=== PATIENT | male | born 1955 | race Caucasian/White ===

== ENCOUNTER 2016-10-22 09:24 | Emergency (ER) | payer MEDICAID ==
--- NOTE | 2016-10-22 09:57 | EDM.PDOC ---
ED HPI GI/ABDOMINAL - General Stated Complaint: POST LIVER BIOP, EXTREME SIDE PAIN Time Seen by Provider: 10/22/16 09:45 Source of Information: Reports: Patient History Limitations: Reports: No limitations - History of Present Illness INITIAL COMMENTS - FREE TEXT/NARRATIVE: This 61 yo male patient reports to the ED with right upper quadrant pain that started 4 days ago and has been getting worse. The patient reports that he had a liver biopsy last by Dr. Rodriguez at [facility] in [place]. The patient reports his pain started to get bad on Friday and has been getting worse since that time. The patient reports that he called [facility] and they are supposed to be calling him back. The patient reports he has been taking the Tramadol as prescribed, but continues to have pain. The patient currently rates his pain at a 15/10. The patient was seen 1 month ago in the ED for similar symptoms. Symptom Onset Date: 10/19/16 Timing/Duration: Reports: Constant, Getting worse Location: RUQ Quality: Reports: ache, stabbing Severity: severe Improves with: Reports: sitting up Worsens with: Reports: lying down Context: Reports: recent surgery (liver biopsy) Associated Symptoms: Reports: denies other symptoms - Related Data Allergies/ADRs: Allergies Allergy/AdvReac Type Severity Reaction Status Date / Time Penicillins Allergy Severe hives, Verified 10/22/16 10:05 body swelling and fainting levofloxacin [From Levaquin] Allergy Intermediate arm Verified 10/22/16 10:05 swelling and extreme redness Iv Levaquin tetanus immune globulin Allergy Hives Verified 10/22/16 10:05 venom-honey bee Allergy Anaphylactic Verified 10/22/16 10:05 [bee venom (honey bee)] Shock Home Meds: Home Meds Albuterol Sulfate [Albuterol Sulfate HFA] 8.5 gm IH Q6H PRN #1 [id number].[id number] [Rx] Fluticasone Propionate [Flovent HFA 44 mcg] 2 puff INH ASDIRECTED 04/17/15 [ History] Amitriptyline [Elavil] 100 mg PO BEDTIME 05/27/16 [History] Ibuprofen [Advil] 200 mg PO DAILY 05/27/16 [History] Nitroglycerin [IJP: Nitroglycerin] 0.4 mg SL ASDIRECTED PRN 05/27/16 [History] OXcarbazepine [Oxcarbazepine] 75 mg PO BID 05/27/16 [History] Pantoprazole [Protonix] 40 mg PO BEDTIME 05/27/16 [History] Zolpidem Tartrate [Zolpidem Tartrate] 5 mg PO BEDTIME 05/27/16 [History] Albuterol/Ipratropium [DuoNeb 3.0-0.5 MG/3 ML] 1 puff INH ASDIRECTED 06/25/16 [ History] DULoxetine [Cymbalta] 1 tab PO BEDTIME 06/25/16 [History] Past Medical History - Past Health History Medical/Surgical History: Denies Medical/Surgical History HEENT History: Reports: None Cardiovascular History: Reports: None Respiratory History: Reports: COPD, Other (see below) Other Respiratory History: pulmoary hypertension Gastrointestinal History: Reports: GERD, Hepatitis, Other (see below) Other Gastrointestinal History: NAUSEA AND VOMITING; HEP C POSITIVE; HX OF HEP A ; HX OF R INGUINAL HERNIA Genitourinary History: Reports: None Musculoskeletal History: Reports: Arthritis, Neck pain, chronic Neurological History: Reports: Head trauma, Migraines Psychiatric History: Reports: Mood swings, Panic attack Endocrine/Metabolic History: Reports: None Hematologic History: Reports: None Immunologic History: Reports: None Oncologic (Cancer) History: Reports: None Dermatologic History: Reports: None - Infectious Disease History Infectious Disease History: Reports: Hepatitis A, Hepatitis C, Measles - Past Surgical History Head Surgeries/Procedures: Reports: None HEENT Surgical History: Reports: Tonsillectomy Cardiovascular Surgical History: Reports: None Respiratory Surgical History: Reports: None GI Surgical History: Reports: EGD, Hernia, inguinal Neurological Surgical History: Reports: None Musculoskeletal Surgical History: Reports: None Oncologic Surgical History: Reports: None Social & Family History - Family History Family Medical History: Noncontributory HEENT: Reports: None Cardiac: Reports: None Respiratory: Reports: None GI: Reports: None : Reports: Other (see below) Other Family History: kidney damage OBGYN: Reports: None Musculoskeletal: Reports: None Neurological: Reports: Migraines Psychiatric: Reports: None Endocrine/Metabolic: Reports: None Hematologic: Reports: None Immunologic: Reports: None Dermatologic: Reports: None Oncologic: Reports: None - Tobacco Use Smoking Status *Q: Current Every Day Smoker Years of Tobacco use: 48 Packs/Tins Daily: 0.2 Used Tobacco, but Quit: No Month Tobacco Last Used: 03/04/2015 Second Hand Smoke Exposure: No - Caffeine Use Caffeine Use: Reports: Coffee Caffeine Use Comment: 2 to 3 cups per day - Alcohol Use Days Per Week of Alcohol Use: 0 Number of Drinks Per Day: 2 Total Drinks Per Week: 0 - Recreational Drug Use Recreational Drug Use: Yes Drug Use in Last 12 Months: Yes Recreational Drug Type: Reports: Marijuana/Hashish Recreational Drug Use Frequency: Weekly Recreational Drug Last Use: 03/15/2015 - Living Situation & Occupation Living situation: Reports: , with family Occupation: employed ED ROS GENERAL - Review of Systems Review Of Systems: ROS reveals no pertinent complaints other than HPI. ED EXAM, GI/ABD - Physical Exam Exam: See Below Exam Limited By: No limitations General Appearance: alert, WD/WN, severe distress, thin Eyes: bilateral: normal appearance, EOMI Ears: normal external exam, normal canal, hearing grossly normal, normal TMs Nose: normal inspection, normal mucosa, no blood Throat/Mouth: Normal inspection, Normal lips, Normal teeth, Normal gums, Normal oropharynx, Normal voice, No airway compromise Head: atraumatic, normocephalic Neck: normal inspection, supple, non-tender, full range of motion Respiratory/Chest: no respiratory distress, lungs clear, normal breath sounds, no accessory muscle use, chest non-tender Cardiovascular: normal peripheral pulses, regular rate, rhythm, no edema, no gallop, no JVD, no murmur, no rub GI/Abdominal: normal bowel sounds, tenderness (RUQ), guarding, rigidity (Male) Exam: Deferred Rectal (Males) Exam: Deferred Back Exam: normal inspection, full range of motion, NT Extremities: normal inspection, normal range of motion, non-tender, normal capillary refill, no pedal edema Neurological: alert, oriented, CN II-XII intact, normal cognition, normal gait, normal reflexes, no motor/sensory deficits Psychiatric: normal affect, normal mood Skin Exam: Warm, Dry, Intact, Normal color, No rash Lymphatic: no adenopathy Course - Vital Signs Last Recorded V/S: Last Vital Signs Temp 36.4 C 10/22/16 09:58 Pulse 88 10/22/16 09:58 Resp 16 10/22/16 09:58 BP 142/88 H 10/22/16 09:58 Pulse Ox 97 10/22/16 09:58 - Orders/Labs/Meds Orders: Active Orders 24 hr Category Date Time Status Abdomen Pelvis w wo Cont [CT] Urgent Exams 10/22/16 10:50 Taken Sodium Chloride 0.9% [Normal Saline] 1,000 ml Med 10/22/16 10:21 Active IV .BOLUS Medication Orders Sodium Chloride (Normal Saline) 1,000 mls @ 125 mls/hr IV .BOLUS ONE Stop: 10/22/16 18:20 Last Admin: 10/22/16 10:29 Dose: 125 mls/hr Labs: Laboratory Tests 10/22/16 10/22/16 10/22/16 Range/Units 09:50 09:50 10:00 WBC 7.4 (5.0-10.0) 10^3/uL RBC 5.03 (4.6-6.2) 10^6/uL Hgb 16.4 (14.0-18.0) g/dL Hct 47.1 (40.0-54.0) % MCV 93.6 (80-100) fL MCH 32.6 (27.0-34.0) pg MCHC 34.8 (33.0-35.0) g/dL Plt Count 156 (150-450) 10^3/uL Neut % (Auto) 61.9 (42.2-75.2) % Lymph % (Auto) 25.4 (20.5-50.1) % [place] % (Auto) 9.8 H (2-8) % Eos % (Auto) 2.6 (1.0-3.0) % Baso % (Auto) 0.3 (0.0-1.0) % Sodium 137 (135-145) mmol/L Potassium 4.1 (3.6-5.0) mmol/L Chloride 101 (101-111) mmol/L Carbon Dioxide 28.0 (21.0-31.0) mmol/L Anion Gap 12.1 BUN 10 (7-18) mg/dL Creatinine 0.9 (0.6-1.3) mg/dL Est Cr Clr Drug Dosing 73.71 mL/min Estimated GFR (MDRD) > 60 BUN/Creatinine Ratio 11.11 Glucose 120 H (74-105) mg/dL Calcium 9.1 (8.4-10.2) mg/dl Magnesium 1.9 (1.8-2.5) mg/dL Total Bilirubin 0.9 (0.2-1.0) mg/dL AST 29 (10-42) IU/L ALT 29 (10-60) IU/L Alkaline Phosphatase 57 (42-121) IU/L Total Protein 7.2 (6.7-8.2) g/dl Albumin 4.2 (3.2-5.5) g/dl Globulin 3.0 Albumin/Globulin Ratio 1.40 Amylase 76 (28-100) U/L Urine Color (YELLOW) Urine Appearance (CLEAR) Urine pH (5.0-9.0) Ur Specific [place] (1.005-1.030) Urine Protein (NEGATIVE) Urine Glucose (UA) (NEGATIVE) Urine Ketones (NEGATIVE) Urine Occult Blood (NEGATIVE) Urine Nitrite (NEGATIVE) Urine Bilirubin (NEGATIVE) Urine Urobilinogen (0.2-1.0) mg/dL Ur Leukocyte Esterase (NEGATIVE) Urine RBC /HPF Urine WBC (0-5/HPF) /HPF Ur Epithelial Cells /HPF Amorphous Sediment (0/HPF) /HPF Urine Bacteria (0-FEW/HPF) /HPF Urine Opiates Screen Negative (NEGATIVE) Ur Oxycodone Screen Negative (NEGATIVE) Urine Methadone Screen Negative (NEGATIVE) Ur Barbiturates Screen Negative (NEGATIVE) U Tricyclic Antidepress Positive H (NEGATIVE) Ur Phencyclidine Scrn Negative (NEGATIVE) Ur Amphetamine Screen Negative (NEGATIVE) U Methamphetamines Scrn Negative (NEGATIVE) Urine MDMA Screen Negative (NEGATIVE) U Benzodiazepines Scrn Negative (NEGATIVE) Urine Cocaine Screen Negative (NEGATIVE) U Marijuana (THC) Screen Positive H (NEGATIVE) 10/22/16 Range/Units 10:00 WBC (5.0-10.0) 10^3/uL RBC (4.6-6.2) 10^6/uL Hgb (14.0-18.0) g/dL Hct (40.0-54.0) % MCV (80-100) fL MCH (27.0-34.0) pg MCHC (33.0-35.0) g/dL Plt Count (150-450) 10^3/uL Neut % (Auto) (42.2-75.2) % Lymph % (Auto) (20.5-50.1) % [place] % (Auto) (2-8) % Eos % (Auto) (1.0-3.0) % Baso % (Auto) (0.0-1.0) % Sodium (135-145) mmol/L Potassium (3.6-5.0) mmol/L Chloride (101-111) mmol/L Carbon Dioxide (21.0-31.0) mmol/L Anion Gap BUN (7-18) mg/dL Creatinine (0.6-1.3) mg/dL Est Cr Clr Drug Dosing mL/min Estimated GFR (MDRD) BUN/Creatinine Ratio Glucose (74-105) mg/dL Calcium (8.4-10.2) mg/dl Magnesium (1.8-2.5) mg/dL Total Bilirubin (0.2-1.0) mg/dL AST (10-42) IU/L ALT (10-60) IU/L Alkaline Phosphatase (42-121) IU/L Total Protein (6.7-8.2) g/dl Albumin (3.2-5.5) g/dl Globulin Albumin/Globulin Ratio Amylase (28-100) U/L Urine Color Yellow (YELLOW) Urine Appearance Slightly cloudy (CLEAR) Urine pH 6.0 (5.0-9.0) Ur Specific [place] 1.010 (1.005-1.030) Urine Protein Negative (NEGATIVE) Urine Glucose (UA) Negative (NEGATIVE) Urine Ketones Negative (NEGATIVE) Urine Occult Blood Negative (NEGATIVE) Urine Nitrite Negative (NEGATIVE) Urine Bilirubin Negative (NEGATIVE) Urine Urobilinogen 0.2 (0.2-1.0) mg/dL Ur Leukocyte Esterase Negative (NEGATIVE) Urine RBC Not seen /HPF Urine WBC Not seen (0-5/HPF) /HPF Ur Epithelial Cells Rare /HPF Amorphous Sediment Few (0/HPF) /HPF Urine Bacteria Rare (0-FEW/HPF) /HPF Urine Opiates Screen (NEGATIVE) Ur Oxycodone Screen (NEGATIVE) Urine Methadone Screen (NEGATIVE) Ur Barbiturates Screen (NEGATIVE) U Tricyclic Antidepress (NEGATIVE) Ur Phencyclidine Scrn (NEGATIVE) Ur Amphetamine Screen (NEGATIVE) U Methamphetamines Scrn (NEGATIVE) Urine MDMA Screen (NEGATIVE) U Benzodiazepines Scrn (NEGATIVE) Urine Cocaine Screen (NEGATIVE) U Marijuana (THC) Screen (NEGATIVE) Meds: Medications Generic Name Dose Route Start Last Admin Trade Name Jessica PRN Reason Stop Dose Admin Sodium Chloride 1,000 mls @ 125 mls/hr 10/22/16 10:21 10/22/16 10:29 Normal Saline IV 10/22/16 18:20 125 mls/hr .BOLUS ONE Administration Discontinued Medications Generic Name Dose Route Start Last Admin Trade Name Jessica PRN Reason Stop Dose Admin Hydromorphone HCl 1 mg 10/22/16 10:22 10/22/16 10:29 Dilaudid IVPUSH 10/22/16 10:23 1 mg ONETIME ONE Administration Iopamidol 75 ml 10/22/16 10:50 10/22/16 11:29 Isovue-300 (61%) IVPUSH 10/22/16 10:51 75 ml ONETIME ONE Administration Departure - Departure Time of Disposition: 12:06 Disposition: Home, Self-Care 01 Condition: fair Clinical Impression: Hematoma of liver, closed Instructions: Hematoma, [id number] Care Plan Goals: The patient was advised of the examination, lab and CT results during the visit. The patient was given an IV dose of Dilaudid while in the ED. The patient was discharged with a script for [place] (5/325) #16 to take 1-2 by mouth every 8 hours as needed for pain. If the patient has any additional symptoms or concerns, the patient should follow-up with his primary care facility or return to the emergency department. - My Orders Last 24 Hours: My Active Orders 10/22/16 10:21 Sodium Chloride 0.9% [Normal Saline] 1,000 ml IV .BOLUS 10/22/16 10:50 Abdomen Pelvis w wo Cont [CT] Urgent - Assessment/Plan Last 24 Hours: My Active Orders 10/22/16 10:21 Sodium Chloride 0.9% [Normal Saline] 1,000 ml IV .BOLUS 10/22/16 10:50 Abdomen Pelvis w wo Cont [CT] Urgent
[2016-10-22 10:19] LABS: CHLORIDE,CL 101 mmol/L (101-111); SODIUM,NA 137 mmol/L (135-145)
[2016-10-22] MEDS ORDERED: Sodium Chloride 0.9% 1,000 ML IV ONE (10:21)
[2016-10-22] MEDS ORDERED: HYDROmorphone 1 MG/ML Syringe IVPUSH ONE (10:22)
[2016-10-22] MEDS ORDERED: Iopamidol 612 MG/ML 75 ML Bottle IVPUSH ONE (10:50)
[2016-10-22 12:24] VITALS: BP 152/68
--- NOTE | 2016-10-22 14:19 | CT ---
CLINICAL HISTORY: 61-year-old 135 pound male smoker with "severe" right upper abdominal pain (liver biopsy [address] exam 27 September 2016 reported as "unremarkable liver". SCAN TECHNIQUE: Triphase liver and CT exam upper abdomen obtained without oral contrast but before/d uring/after the intravenous administration 75 cc nonionic Isovue contrast (3 cc/sec via injector) wh ile the patient was lying supine on the Siemens multislice CT scanner [place], [place]. All data archived in the PACS system for storage, this enhancing and study. INTERPRETATION: 1. Nephrolithiasis left kidney (scattered punctate calcifications midline and lower pole). No associ ated evidence of obstructive uropathy. 2. Focal low density region with a "track" laterally located mid-level right lobe of the liver. No h ematoma or other mass lesion associated with this apparent biopsy site. Trace intercostal, extrahepa tic collection of air at origin of biopsy "tract". Nonspecific bowel pattern. Normal stomach, spleen, pancreas and adrenal glands. Small H.H. Normal gallbladder. 4. No upper abdominal mass lesion, bowel obstruction, signs of ascites or free intraperitoneal air. 5. Atheromatous calcifications but normal caliber aortoiliac vessels. Lung bases clear. CONCLUSION: Subtle, expected sequelae post biopsy procedure, RUQ. No sign of subcapsular hematoma or intraperitoneal bleed.
== END 2016-10-22 12:24 | disposition home or self-care (01) ==
LOC: DL.ED 09:24
DX: K76.89 Other specified diseases of liver (principal); J44.9 Chronic obstructive pulmonary disease, unspecified; I27.2 Other secondary pulmonary hypertension; K21.9 Gastro-esophageal reflux disease without esophagitis; F17.200 Nicotine dependence, unspecified, uncomplicated; Z88.0 Allergy status to penicillin; Z88.8 Allergy status to other drugs, medicaments and biological substances; Z79.899 Other long term (current) drug therapy
CPT/HCPCS: 36415; 74178; 80053; 80305; 81001; 82150; 83735; 85025; 96361; 96374; 99285; J1170; J7030; Q9967

== ENCOUNTER 2016-10-25 14:05 | Emergency (ER) | payer MEDICAID | END 2016-10-25 16:55 | disposition left against medical advice (07) | LOC: DL.ED 14:05 | DX: Z53.21 Procedure and treatment not carried out due to patient leaving prior to being seen by health care provider (principal) ==

== ENCOUNTER 2018-02-22 10:39 | Emergency (ER) | payer MEDICAID ==
[2018-02-22 10:57] VITALS: BP 137/95
[2018-02-22] MEDS ORDERED: Sodium Chloride 0.9% 10 ML Syringe FLUSH PRN (11:11)
--- NOTE | 2018-02-22 11:29 | EDM.PDOC ---
ED HPI GENERAL MEDICAL PROBLEM - General Chief Complaint: Chest Pain Stated Complaint: [id number] CHEST/STOMACH PAIN Time Seen by Provider: 02/22/18 11:18 Source of Information: Reports: Patient History Limitations: Reports: No Limitations - History of Present Illness INITIAL COMMENTS - FREE TEXT/NARRATIVE: Patient comes emergency Department today with complaints of epigastric pain. His epigastric pain is been going on from anywhere from 1 week to a month. He comes emergency department today because he can't take it anymore. It is a sharp shooting stabbing pain in his epigastric region that is worse when he stands up. He denies any heartburn type symptoms. He denies any chest pain or worsening of his shortness of breath due to his underlying COPD. No congestion no hemoptysis. He has tried nothing for the pain. He does not relate anything that makes the pain worse or better. Does not get worse with eating it does not get better with eating. Pain waxes and wanes throughout the day. He has had no nausea no vomiting. No hematuria dysuria or urinary frequency. No black or tarry stools. Mid-Sternal Chest Pain Score (Numeric/FACES): 6 - Related Data Allergies Allergy/AdvReac Type Severity Reaction Status Date / Time Penicillins Allergy Severe hives, Verified 10/22/16 10:05 body swelling and fainting levofloxacin [From Levaquin] Allergy Intermediate arm Verified 10/22/16 10:05 swelling and extreme redness Iv Levaquin tetanus immune globulin Allergy Hives Verified 10/22/16 10:05 venom-honey bee Allergy Anaphylactic Verified 10/22/16 10:05 [bee venom (honey bee)] Shock Home Meds: Home Meds Albuterol Sulfate [Albuterol Sulfate HFA] 8.5 gm IH Q6H PRN #1 [id number] [Rx] Fluticasone Propionate [Flovent HFA 44 mcg] 2 puff INH ASDIRECTED 04/17/15 [ History] Amitriptyline [Elavil] 100 mg PO BEDTIME 05/27/16 [History] Ibuprofen [Advil] 200 mg PO DAILY 05/27/16 [History] Nitroglycerin [IJP: Nitroglycerin] 0.4 mg SL ASDIRECTED PRN 05/27/16 [History] OXcarbazepine [Oxcarbazepine] 75 mg PO BID 05/27/16 [History] Zolpidem Tartrate 5 mg PO BEDTIME 05/27/16 [History] Albuterol/Ipratropium [DuoNeb 3.0-0.5 MG/3 ML] 1 puff INH ASDIRECTED 06/25/16 [ History] DULoxetine [Cymbalta] 1 tab PO BEDTIME 06/25/16 [History] Hydrocodone/Acetaminophen [Hydrocodon-Acetaminophen 5-325] 1 tab PO PRN [History] Zolpidem Tartrate 10/25/16 [History] traMADol HCl [Tramadol HCl] 10/25/16 [History] Past Medical History - Past Health History Medical/Surgical History: Denies Medical/Surgical History HEENT History: Reports: Impaired Vision Cardiovascular History: Reports: None Respiratory History: Reports: COPD, Other (See Below) Other Respiratory History: pulmoary hypertension Gastrointestinal History: Reports: GERD, Hepatitis, Other (See Below) Other Gastrointestinal History: NAUSEA AND VOMITING; HEP C POSITIVE; HX OF HEP A ; HX OF R INGUINAL HERNIA Genitourinary History: Reports: None Musculoskeletal History: Reports: Arthritis, Neck Pain, Chronic Neurological History: Reports: Head Trauma, Migraines Psychiatric History: Reports: Anxiety, Mood Swings, Panic Attack Endocrine/Metabolic History: Reports: None Hematologic History: Reports: None Immunologic History: Reports: None Oncologic (Cancer) History: Reports: None Dermatologic History: Reports: None - Infectious Disease History Infectious Disease History: Reports: Hepatitis A, Hepatitis C, Measles - Past Surgical History Head Surgeries/Procedures: Reports: None HEENT Surgical History: Reports: Adenoidectomy, Tonsillectomy Cardiovascular Surgical History: Reports: None GI Surgical History: Reports: EGD, Hernia, Inguinal, Hernia Repair/Other Oncologic Surgical History: Reports: None Social & Family History - Family History Family Medical History: Noncontributory HEENT: Reports: None Cardiac: Reports: None Respiratory: Reports: None GI: Reports: None : Reports: Other (See Below) Other Family History: kidney damage OBGYN: Reports: None Musculoskeletal: Reports: None Neurological: Reports: Migraines Psychiatric: Reports: None Endocrine/Metabolic: Reports: None Hematologic: Reports: None Immunologic: Reports: None Dermatologic: Reports: None Oncologic: Reports: None - Tobacco Use Smoking Status *Q: Current Every Day Smoker Years of Tobacco use: 50 Packs/Tins Daily: 0.2 - Caffeine Use Caffeine Use: Reports: Coffee, Soda Caffeine Use Comment: 2 to 3 cups per day - Recreational Drug Use Recreational Drug Use: Yes Recreational Drug Type: Reports: Marijuana/Hashish Other Recreational Drug Type: last time pt smoked pot 3 weeks ago - Living Situation & Occupation Living situation: Reports: , with Family Occupation: Employed ED ROS GENERAL - Review of Systems Review Of Systems: ROS reveals no pertinent complaints other than HPI. ED EXAM, GENERAL - Physical Exam Exam: See Below Exam Limited By: No Limitations General Appearance: Alert, WD/WN, No Apparent Distress Ears: Normal External Exam Nose: Normal Inspection Throat/Mouth: Normal Inspection, Normal Lips, Normal Oropharynx Head: Atraumatic, Normocephalic Neck: Normal Inspection, Supple Respiratory/Chest: No Respiratory Distress, Lungs Clear, No Accessory Muscle Use , Decreased Breath Sounds Cardiovascular: Normal Peripheral Pulses, Regular Rate, Rhythm, No Edema Peripheral Pulses: 2+: Radial (L), Radial (R), Posterior Tibial (L), Posterior Tibial (R), Dorsalis Pedis (L), Dorsalis Pedis (R) GI/Abdominal: Normal Bowel Sounds, Soft, Guarding (To the epigastric and right upper quadrant.), Tender (Tenderness in the epigastric region and the right upper quadrant with even the lightest palpation of the abdomen. Setting the stethoscope without any pressure is very uncomfortable for him. No rebound.) (Male) Exam: Deferred Rectal (Males) Exam: Deferred Back Exam: Normal Inspection, Full Range of Motion Extremities: Normal Inspection Neurological: Alert, Oriented, CN II-XII Intact Psychiatric: Normal Affect Skin Exam: Warm, Dry, Intact, Normal Color Lymphatic: No Adenopathy EKG INTERPRETATION EKG Date: 02/22/18 Time: 10:51 Rhythm: NSR Rate (Beats/Min): 60 [place]: Normal P-Wave: Present QRS: Normal ST-T: Normal QT: Normal Course - Vital Signs Last Recorded V/S: Last Vital Signs Temp 36.9 C 02/22/18 10:55 Pulse 67 02/22/18 10:55 Resp 16 02/22/18 10:55 BP 137/95 H 07/22/18 10:55 Pulse Ox 99 02/22/18 10:55 - Orders/Labs/Meds Orders: Active Orders 24 hr Category Date Time Status EKG 12 Lead [EKG Documentation Completion] [] URGENT Care 02/22/18 11:11 Active Peripheral IV Care [] . DIRECTED Care 02/22/18 11:11 Active UA W/MICROSCOPIC [URIN] Stat Lab 02/22/18 11:23 Ordered Peripheral IV Insertion Adult [OM.PC] Stat Oth 02/22/18 11:11 Ordered Labs: Laboratory Tests 02/22/18 02/22/18 02/22/18 Range/Units 11:23 11:23 11:23 WBC 8.2 (5.0-10.0) 10^3/uL RBC 5.17 (4.6-6.2) 10^6/uL Hgb 16.3 (14.0-18.0) g/dL Hct 46.3 (40.0-54.0) % MCV 89.6 D (80-100) fL MCH 31.5 (27.0-34.0) pg MCHC 35.2 H (33.0-35.0) g/dL Plt Count 165 (150-450) 10^3/uL Neut % (Auto) 67.7 (42.2-75.2) % Lymph % (Auto) 23.0 (20.5-50.1) % [place] % (Auto) 7.4 (2-8) % Eos % (Auto) 1.7 (1.0-3.0) % Baso % (Auto) 0.2 (0.0-1.0) % Sodium 139 (135-145) mmol/L Potassium 4.7 (3.6-5.0) mmol/L Chloride 104 (101-111) mmol/L Carbon Dioxide 28.0 (21.0-31.0) mmol/L Anion Gap 11.7 BUN 11 (7-18) mg/dL Creatinine 0.9 (0.6-1.3) mg/dL Est Cr Clr Drug Dosing 66.83 mL/min Estimated GFR (MDRD) > 60 BUN/Creatinine Ratio 12.22 Glucose 111 H (74-105) mg/dL Calcium 9.8 (8.4-10.2) mg/dl Total Bilirubin 1.4 H (0.2-1.0) mg/dL AST 29 (10-42) IU/L ALT 29 (10-60) IU/L Alkaline Phosphatase 62 (42-121) IU/L Troponin I < 0.02 (0.00-0.02) ng/ml C-Reactive Protein (0.0-1.3) mg/dL Total Protein 7.5 (6.7-8.2) g/dl Albumin 4.2 (3.2-5.5) g/dl Globulin 3.3 Albumin/Globulin Ratio 1.27 Lipase (22-51) U/L Urine Color Yellow (YELLOW) Urine Appearance Clear (CLEAR) Urine pH 7.5 (5.0-9.0) Ur Specific [place] 1.010 (1.005-1.030) Urine Protein Negative (NEGATIVE) Urine Glucose (UA) Negative (NEGATIVE) Urine Ketones Negative (NEGATIVE) Urine Occult Blood Negative (NEGATIVE) Urine Nitrite Negative (NEGATIVE) Urine Bilirubin Negative (NEGATIVE) Urine Urobilinogen 0.2 (0.2-1.0) mg/dL Ur Leukocyte Esterase Negative (NEGATIVE) Urine RBC 0-5 /HPF Urine WBC Not seen (0-5/HPF) /HPF Ur Epithelial Cells Rare /HPF Urine Bacteria Rare (0-FEW/HPF) /HPF 02/22/18 02/22/18 Range/Units 11:23 11:23 WBC (5.0-10.0) 10^3/uL RBC (4.6-6.2) 10^6/uL Hgb (14.0-18.0) g/dL Hct (40.0-54.0) % MCV (80-100) fL MCH (27.0-34.0) pg MCHC (33.0-35.0) g/dL Plt Count (150-450) 10^3/uL Neut % (Auto) (42.2-75.2) % Lymph % (Auto) (20.5-50.1) % [place] % (Auto) (2-8) % Eos % (Auto) (1.0-3.0) % Baso % (Auto) (0.0-1.0) % Sodium (135-145) mmol/L Potassium (3.6-5.0) mmol/L Chloride (101-111) mmol/L Carbon Dioxide (21.0-31.0) mmol/L Anion Gap BUN (7-18) mg/dL Creatinine (0.6-1.3) mg/dL Est Cr Clr Drug Dosing mL/min Estimated GFR (MDRD) BUN/Creatinine Ratio Glucose (74-105) mg/dL Calcium (8.4-10.2) mg/dl Total Bilirubin (0.2-1.0) mg/dL AST (10-42) IU/L ALT (10-60) IU/L Alkaline Phosphatase (42-121) IU/L Troponin I (0.00-0.02) ng/ml C-Reactive Protein 1.9 H (0.0-1.3) mg/dL Total Protein (6.7-8.2) g/dl Albumin (3.2-5.5) g/dl Globulin Albumin/Globulin Ratio Lipase 162 H (22-51) U/L Urine Color (YELLOW) Urine Appearance (CLEAR) Urine pH (5.0-9.0) Ur Specific [place] (1.005-1.030) Urine Protein (NEGATIVE) Urine Glucose (UA) (NEGATIVE) Urine Ketones (NEGATIVE) Urine Occult Blood (NEGATIVE) Urine Nitrite (NEGATIVE) Urine Bilirubin (NEGATIVE) Urine Urobilinogen (0.2-1.0) mg/dL Ur Leukocyte Esterase (NEGATIVE) Urine RBC /HPF Urine WBC (0-5/HPF) /HPF Ur Epithelial Cells /HPF Urine Bacteria (0-FEW/HPF) /HPF Meds: Medications Discontinued Medications Generic Name Dose Route Start Last Admin Trade Name Freq PRN Reason Stop Dose Admin Al Hydroxide/Mg Hydroxide 30 ml 02/22/18 12:13 02/22/18 12:18 Gi Cocktail PO 02/22/18 12:14 30 ml ONETIME ONE Administration Sodium Chloride 10 ml 02/22/18 11:11 02/22/18 12:18 Saline Flush FLUSH 10 ml ASDIRECTED PRN Administration Keep Vein Open - Re-Assessments/Exams Free Text/Narrative Re-Assessment/Exam: 02/22/18 11:29 GI cocktail with complete resolution of the pain that brought him into the ED. labs are unremarkable except for a chronic elevation of T ga most likely from his Hepatitis. Will complete US gallbladder tomorrow to ensure no gallbladder pathology. Symptom free on discharge. Departure - Departure Time of Disposition: 12:26 Disposition: Home, Self-Care 01 Clinical Impression: Epigastric abdominal pain, Serum total bilirubin elevated GERD (gastroesophageal reflux disease) Qualifiers: Esophagitis presence: esophagitis presence not specified Qualified Code(s): K21.9 - Gastro-esophageal reflux disease without esophagitis Instructions: Abdominal or Pelvic Ultrasound, [id number], Abdominal Pain, Adult, [id number], Gastroesophageal Reflux Disease, Adult, [id number] Forms: ED Department Discharge Additional Instructions: Tylenol as needed for pain. Maalox or Mylanta for acute episodes of epigastric pain. Omeprazole, 1 tablet every day for 28 days. RX given to the patient. Nothing to eat or drink after midnight, return in the morning for Gallbladder US at 8:00 for US at 8:30. Return to the ED if new or worsening symptoms. Follow up with primary care following the US. - My Orders Last 24 Hours: My Active Orders 02/22/18 11:11 EKG 12 Lead [EKG Documentation Completion] [RC] URGENT Peripheral IV Care [RC] . DIRECTED Peripheral IV Insertion Adult [OM.PC] Stat 02/22/18 11:23 UA W/MICROSCOPIC [URIN] Stat - Assessment/Plan Last 24 Hours: My Active Orders 02/22/18 11:11 EKG 12 Lead [EKG Documentation Completion] [RC] URGENT Peripheral IV Care [RC] . DIRECTED Peripheral IV Insertion Adult [OM.PC] Stat 02/22/18 11:23 UA W/MICROSCOPIC [URIN] Stat Assessment:: Acute on chronic epigastric pain Elevated T Ga chronic GERD Plan: Tylenol as needed for pain. Maalox or Mylanta for acute episodes of epigastric pain. Omeprazole, 1 tablet every day for 28 days. RX given to the patient. Nothing to eat or drink after midnight, return in the morning for Gallbladder US at 8:00 for US at 8:30. Return to the ED if new or worsening symptoms. Follow up with primary care following the US.
[2018-02-22 11:47] LABS: ANION GAP 11.7; CHLORIDE,CL 104 mmol/L (101-111); SODIUM,NA 139 mmol/L (135-145)
--- NOTE | 2018-02-22 11:57 | CR ---
Clinical history: 62-year-old male smoker with chest pain and shortness of breath who was reported on chest radiograph 07 January 2016 have "no acute pulmonary disease". Reevaluate please. Interpretation: Some coarse accentuation of perihilar lung markings and generalized mild air trapping suggesting bron chospasm. Normal cardiac silhouette without cephalization of flow, signs of alveolar edema or dependent pleural fluid accumulation. No new lung mass hilar lymphadenopathy or focal lobar pneumonia when compared to AP sitting film 2015. No atelectasis/collapse. No pneumothorax. Kelle thorax unremarkable. CONCLUSION: Bronchial inflammatory changes. No lobar pneumonia, signs of heart failure or pneumothora x.
[2018-02-22] MEDS ORDERED: GI Cocktail Oral Solution 30 ML PO ONE (12:13)
--- NOTE | 2018-02-24 07:31 | EKG ---
02/22/2018- SHASHANK MARTINES - EKG per my reading shows sinus rhythm at a rate of 60. [facility] /[id number]
== END 2018-02-22 12:45 | disposition home or self-care (01) ==
LOC: DL.ED 10:39
DX: K21.9 Gastro-esophageal reflux disease without esophagitis (principal); E80.7 Disorder of bilirubin metabolism, unspecified; F17.210 Nicotine dependence, cigarettes, uncomplicated; J44.9 Chronic obstructive pulmonary disease, unspecified; F41.9 Anxiety disorder, unspecified; Z79.899 Other long term (current) drug therapy; Z88.1 Allergy status to other antibiotic agents; Z88.7 Allergy status to serum and vaccine; Z91.030 Bee allergy status; Z88.0 Allergy status to penicillin
CPT/HCPCS: 36415; 71046; 80053; 81001; 83690; 84484; 85025; 86140; 93005; 99285; A9270; J7050

== ENCOUNTER 2021-02-23 20:37 | Emergency (ER) | payer MEDICARE, MEDICAID ==
[2021-02-23 20:56] VITALS: BP 140/69; PULSE 62
--- NOTE | 2021-02-24 04:38 | EDM.PDOC ---
ED HPI GENERAL MEDICAL PROBLEM - General Chief Complaint: Abdominal Pain Stated Complaint: SEVERE UPPER CHEST PAIN SINCE 6 PM Time Seen by Provider: 02/23/21 21:00 Source of Information: Reports: Patient History Limitations: Reports: No Limitations - History of Present Illness INITIAL COMMENTS - FREE TEXT/NARRATIVE: ED with c/o left upper / epigastric pain, constant sharp piercing since afternoon, last meal pizza. Denies heartburn. Slight nausea no vomiting. Some distension. Able to belch and pass gas. No fever. Denies constipation. No chest discomfort. Admitted to RN smoking weed this afternoon. Epigastric Pain Score (Numeric/FACES): 8 - Related Data Allergies Allergy/AdvReac Type Severity Reaction Status Date / Time Penicillins Allergy Severe hives, Verified 02/03/19 11:33 body swelling and fainting levofloxacin [From Levaquin] Allergy Intermediate arm Verified 02/03/19 11:33 swelling and extreme redness Iv Levaquin tetanus immune globulin Allergy Hives Verified 02/03/19 11:33 venom-honey bee Allergy Anaphylactic Verified 02/03/19 11:33 [bee venom (honey bee)] Shock Home Meds: Home Meds Ibuprofen [Advil] 600 mg PO ASDIRECTED PRN 05/27/16 [History] Nitroglycerin [IJP: Nitroglycerin] 0.4 mg SL ASDIRECTED PRN 05/27/16 [History] Zolpidem Tartrate 5 mg PO BEDTIME 05/27/16 [History] Acetaminophen 500 mg PO BID PRN 03/01/19 [History] Albuterol Sulfate [Albuterol Sulfate HFA] 1 puff INH Q6H PRN 03/01/19 [History] Amitriptyline [Elavil] 150 mg PO DAILY 03/01/19 [History] Ipratropium/Albuterol Sulfate [Iprat-Albut 0.5-3(2.5) MG/3 ML] 3 ml INH Q6HR 03/01/19 [History] Past Medical History - Past Health History Medical/Surgical History: Denies Medical/Surgical History HEENT History: Reports: Impaired Vision Cardiovascular History: Reports: None Respiratory History: Reports: COPD, Other (See Below) Other Respiratory History: pulmoary hypertension Gastrointestinal History: Reports: GERD, Hepatitis, Other (See Below) Other Gastrointestinal History: NAUSEA AND VOMITING; HEP C POSITIVE; HX OF HEP A; HX OF R INGUINAL HERNIA Genitourinary History: Reports: None Musculoskeletal History: Reports: Arthritis, Neck Pain, Chronic Neurological History: Reports: Head Trauma, Migraines, Other (See Below) Other Neuro History: Pt states he had a TIA, did not come in. Psychiatric History: Reports: Anxiety, Mood Swings, Panic Attack Endocrine/Metabolic History: Reports: None Hematologic History: Reports: None Immunologic History: Reports: None Oncologic (Cancer) History: Reports: None Dermatologic History: Reports: None - Infectious Disease History Infectious Disease History: Reports: Hepatitis A, Hepatitis C, Measles - Past Surgical History Head Surgeries/Procedures: Reports: None HEENT Surgical History: Reports: Adenoidectomy, Tonsillectomy Cardiovascular Surgical History: Reports: None Respiratory Surgical History: Reports: Lung Biopsies GI Surgical History: Reports: EGD, Hernia, Inguinal, Hernia Repair/Other Neurological Surgical History: Reports: None Musculoskeletal Surgical History: Reports: None Oncologic Surgical History: Reports: None Social & Family History - Family History Family Medical History: No Pertinent Family History HEENT: Reports: None Cardiac: Reports: None Respiratory: Reports: None GI: Reports: None : Reports: Other (See Below) Other Family History: kidney damage OBGYN: Reports: None Musculoskeletal: Reports: None Neurological: Reports: Migraines Psychiatric: Reports: None Endocrine/Metabolic: Reports: None Hematologic: Reports: None Immunologic: Reports: None Dermatologic: Reports: None Oncologic: Reports: None - Tobacco Use Tobacco Use Status *Q: Light Tobacco User Years of Tobacco use: 20 Packs/Tins Daily: 0.2 - Caffeine Use Caffeine Use: Reports: None Caffeine Use Comment: 2 to 3 cups per day - Recreational Drug Use Recreational Drug Use: Yes Recreational Drug Type: Reports: Marijuana/Hashish Recreational Drug Use Frequency: Socially - Living Situation & Occupation Living situation: Reports: , with Family Occupation: Employed ED ROS GENERAL - Review of Systems Review Of Systems: Comprehensive ROS is negative, except as noted in HPI. ED EXAM, GI/ABD - Physical Exam Exam: See Below Exam Limited By: No Limitations General Appearance: Alert, Anxious, Mild Distress, Thin Ears: Normal External Exam Nose: Normal Inspection Throat/Mouth: Normal Inspection Head: Atraumatic Respiratory/Chest: No Respiratory Distress, Lungs Clear, Normal Breath Sounds Cardiovascular: Regular Rate, Rhythm GI/Abdominal Exam: Normal Bowel Sounds, Soft, Tender (low epigastric). No: Guarding Extremities: Normal Inspection Psychiatric: Anxious Skin Exam: Warm, Dry, Intact, Normal Color #1 Interpretation EKG Date: 02/23/21 Time: 20:46 Rhythm: Other (sinus arrhythmia) Rate (Beats/Min): 62 P-Wave: Present QRS: Normal ST-T: Normal Comparison: Change From Previous EKG EKG Interpretation Comments: Sinus arrhythmia Course - Vital Signs Last Recorded V/S: Last Vital Signs Temp 97.5 F 02/23/21 20:52 Pulse 62 02/23/21 20:52 Resp 18 02/23/21 20:52 BP 140/69 02/23/21 20:52 Pulse Ox 96 02/23/21 20:52 Departure - Departure Time of Disposition: 22:35 Disposition: Eloped 07 Condition: Undetermined Clinical Impression: Abdominal pain Qualifiers: Abdominal location: epigastric Qualified Code(s): R10.13 - Epigastric pain - Discharge Information *PRESCRIPTION DRUG MONITORING PROGRAM REVIEWED*: No *COPY OF PRESCRIPTION DRUG MONITORING REPORT IN PATIENT MAHENDRA: No Referrals: PCP,None [Primary Care Provider] - Forms: ED Department Discharge Sepsis Event Note (ED) - Evaluation Sepsis Screening Result: No Definite Risk
== END 2021-02-23 22:35 | disposition left against medical advice (07) ==
LOC: DL.ED 20:37
DX: R10.13 Epigastric pain (principal); I49.8 Other specified cardiac arrhythmias; J44.9 Chronic obstructive pulmonary disease, unspecified; Z72.0 Tobacco use; Z88.0 Allergy status to penicillin; Z91.030 Bee allergy status; Z88.7 Allergy status to serum and vaccine; Z88.1 Allergy status to other antibiotic agents; Z79.899 Other long term (current) drug therapy
CPT/HCPCS: 93005; 99284-25